=== PATIENT | male | born 2000 | race Caucasian/White ===

== ENCOUNTER 2024-04-24 20:50 | Emergency (ER) | payer OTHER, SELFPAY ==
[2024-04-24 21:06] VITALS: BP 139/85
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
[2024-04-25] MEDS: ADACEL 0.5 ML IM (01:57)
[2024-04-25] MEDS: MOTRIN 800 MG PO (01:59)
[2024-04-25] MEDS: AUGMENTIN 875 MG/125 MG 1 TABLET PO (01:59)
[2024-04-25 02:43] VITALS: BP 118/78
[2024-04-25 21:21] LABS: Hepatitis B Surface Antibody Negative; Hepatitis C Antibody Negative (Negative)
[2024-04-26 13:41] LABS: HIV Combo Negative (Negative)
== END 2024-04-25 02:10 | disposition home or self-care (01) ==
LOC: EMR 20:50
PROVIDERS: EMERGENCY PHYSICIAN Emergency Medicine
DX: S61.052A Open bite of left thumb without damage to nail, initial encounter (principal); Y04.1XXA Assault by human bite, initial encounter; Y99.0 Civilian activity done for income or pay; J45.909 Unspecified asthma, uncomplicated; Z23 Encounter for immunization
CPT/HCPCS: 99284; 90471; 73130; 86706; 86803; 87389; 90715